=== PATIENT | female | born 2000 | race Hispanic/Latino ===

== ENCOUNTER 2020-07-11 20:10 | Emergency (ER) | payer OTHER, SELFPAY ==
[2020-07-11] VITALS (22 sets, daily range): BP systolic 84–118; BP diastolic 50–75; PULSE 71–78; RESP 16–18; TEMP 36.4; O2SAT 97–100
[2020-07-11 20:38] LABS: Basophils Percent Auto 0.2 % (0.2-1.2); Eosinophils Percent Auto 0.5 % (0-4.4); Hematocrit 39.9 % (37.0-47.0); Hemoglobin 13.7 g/dL (12.0-15.0); Immature Granulocyte Absolute 0.04 K/mm3 (0.00-0.031); Immature Granulocyte Percent A 0.5 % (0-0.5); Lymphocytes Absolute Auto 2.35 K/mm3 (0.9-3.2); Mean Corpuscular HGB Conc 34.3 g/dl (32-36); Mean Corpuscular Volume 84.4 fl (80-100); Mean Platelet Volume 9.5 fl (7.4-10.4); Monocytes Absolute Auto 0.5 K/mm3 (0.1-0.6); Monocytes Percent Auto 5.2 % (2.6-8.5); Neutrophils Absolute Auto 5.8 K/mm3 (1.3-6.7); Neutrophils Percent Auto 66.6 % (45.5-73.1); Platelet Count Result 256 k/mm3 (150-375); Red Blood Count 4.73 M/mm3 (4.2-5.4); Red Cell Distribution Width 12.8 % (11.5-14.5); White Blood Count 8.7 K/mm3 (4.5-10.0)
--- NOTE | 2020-07-11 20:44 | ED.FEMALEGU ---
HPI - Female Genitourinary General Chief complaint: Abdominal Pain Stated complaint: 16 weeks preg, spotting, lower abd pain Time Seen by Provider: 07/11/20 20:27 Source: patient Mode of arrival: ambulatory Limitations: no limitations History of Present Illness HPI Narrative: 19 years old female, 17 weeks , 2, para 1, 1. Patient presents with vaginal spotting few hours prior to arrival to the emergency room with lower abdominal cramps. Patient denies any fever, chills, nausea, vomiting, chest pain or urinary symptoms Related Data Home Medications Medication Instructions Recorded Confirmed 19 1 tablet PO DAILY 06/02/19 06/02/19 Allergies Allergy/AdvReac Type Severity Reaction Status Date / Time No Known Allergies Allergy Unverified 01/08/19 08:13 Review of Systems Review of Systems: Narrative: CONSTITUTIONAL: Denies fever, chills, or sweats. EYES: Denies visual changes, redness, or discharge. ENT: Denies rhinorrhea, congestion, sore throat, or otalgia. CARDIOVASCULAR: Denies chest pain, palpitations, or edema. RESPIRATORY: Denies cough or dyspnea. GASTROINTESTINAL: Denies abdominal pain, nausea, vomiting, or diarrhea. GENITOURINARY: Denies dysuria or hematuria. SKIN: Denies rash or itching. MUSCULOSKELETAL: Denies back pain, joint pain, or myalgia. NEUROLOGIC: Denies headache, numbness, or weakness. PSYCHIATRIC: Denies anxiety or depression. [facility] Family History Family History Other Unknown family medical history Social History Social History Smoking status: Never smoker Substance use: never Spiritual care concerns: No Exam Narrative: Exam Narrative: General appearance: Well-developed, well-nourished Skin: Normal color Head: Normocephalic, nontraumatic Eyes: Clear conjunctiva ENT: Oropharynx normal, ears normal, nose normal Neck: Supple, nontender Chest and respiratory: Airway patent, no respiratory distress, no accessory muscle use Heart: Regular rate/rhythm Abdomen: Soft, nontender, no organomegaly, quiet bowel sounds Vascular: Normal peripheral pulses, normal capillary refill. Musculoskeletal: Normal range of motion, nontender back Neurologic: Alert and oriented ?3, [employer] is normal as tested, no gross motor deficit : External Female Exam: normal external appearance Speculum Exam - Vagina: normal appearance of the vagina and vaginal bleeding (No vaginal bleeding) Speculum Exam - Cervix: normal appearance of the cervix and Cervical os closed Course Course Emergency Course: Stable Reevaluation(s) Reevaluation #1: heart tone is 150. Patient is comfortable denying any symptoms at this time. Date: 07/11/20 Time: 22:59 Vital Signs Vital signs: Vital Signs Temperature 36.4 C L 07/11/20 20:15 Pulse Rate 77 07/11/20 20:15 Respiratory Rate 18 07/11/20 20:15 Blood Pressure 118/60 07/11/20 20:15 Pulse Oximetry 100 07/11/20 20:15 Temperature 36.4 C L 07/11/20 20:15 Pulse Rate 71 07/11/20 22:28 Respiratory Rate 16 07/11/20 22:28 Blood Pressure 95/50 L 07/11/20 22:28 Pulse Oximetry 98 07/11/20 22:28 MDM - Female Genitourinary MDM Narrative Medical decision making narrative: 17 weeks , vaginal spotting prior to arrival to the emergency room. Pelvic exam showed no active bleeding, no blood in the vaginal pouch. Labs, heart tone, pelvic ultrasound ordered. Further plan to follow Differential Diagnosis Differential diagnosis: Likely cervicitis and other () Lab Data Result diagrams: 07/11/20 20:31 Laura
[2020-07-11 22:01] LABS: Add Urine Microscopic? NO; Appearance Urine Clear (Clear); Bilirubin Urine Negative (Negative); Blood Urine Negative (Negative); Color Urine Straw (Yellow); Glucose Urine UA Negative (Negative); Ketones Urine Negative (Negative); Leukocyte Esterase Ur Negative LEU/UL (Negative); Nitrate Urine Negative (Negative); Protein Urine Negative (Negative); Specific Grav Ur 1.014 (1.001-1.035); Urobilinogen Urine Negative mg/dL (<2.0)
== END 2020-07-11 23:21 | disposition home or self-care (01) ==
PROVIDERS: Emergency Medicine; Emergency Provider Emergency Medicine; PCP Obstetrics & Gynecology
DX: O20.0 Threatened abortion (principal); Z3A.17 17 weeks gestation of pregnancy
CPT/HCPCS: 36415; 81003; 84702; 85025; 85461; 99283

== ENCOUNTER 2020-11-23 01:52 | Inpatient (IN) | payer OTHER, SELFPAY ==
[2020-11-23] VITALS (19 sets, daily range): BP systolic 102–140; BP diastolic 61–117; PULSE 67–113; RESP 14–20; TEMP 36.1–37.1; O2SAT 98; BMI 36.1
[2020-11-23 04:33] LABS: Basophils Percent Auto 0.2 % (0.2-1.2); Eosinophils Percent Auto 0.2 % (0-4.4); Hematocrit 35.2 % (37.0-47.0); Hemoglobin 10.8 g/dL (12.0-15.0); Immature Granulocyte Absolute 0.11 K/mm3 (0.00-0.031); Immature Granulocyte Percent A 0.9 % (0-0.5); Lymphocytes Absolute Auto 1.84 K/mm3 (0.9-3.2); Lymphocytes Percent Auto 14.9 % (18.3-44.2); Mean Corpuscular HGB Conc 30.7 g/dl (32-36); Mean Corpuscular Hemoglobin 23.2 pg (26-34); Mean Corpuscular Volume 75.5 fl (80-100); Monocytes Absolute Auto 0.6 K/mm3 (0.1-0.6); Monocytes Percent Auto 4.9 % (2.6-8.5); Neutrophils Absolute Auto 9.8 K/mm3 (1.3-6.7); Neutrophils Percent Auto 78.9 % (45.5-73.1); Platelet Count Result 221 k/mm3 (150-375); Red Blood Count 4.66 M/mm3 (4.2-5.4); Red Cell Distribution Width 15.9 % (11.5-14.5); White Blood Count 12.4 K/mm3 (4.5-10.0)
--- NOTE | 2020-11-23 04:40 | LDADM ---
This patient, Yumi Jesus, was admitted to Labor/Delivery/Recovery 103 on 11/23/20 at 01:52. Plans for labor, pain management and were discussed with patient. Patient/family oriented to hospital policies and general routines including ID bracelet, bed and alarms, visiting hours, pain management, procedures, bathroom and other care routines, personal items, smoking policy, room service/diet and guest tray routines, security routines, and visiting hours. Patient/Family are encouraged to report perceived risks to care and to ask questions if they do not understand what they are told or what they should do. See [facility]BI[facility] for further documentation.
[2020-11-23] MEDS: fentaNYL CITRATE INJ (*CRX) 100 MCG/2 ML VIAL 50 MCG IV PUSH ×2 (04:51→06:06)
[2020-11-23] MEDS: OXYTOCIN 30 UNITS/NS 500 ML 30 UNITS/500 ML BAG 999 UNITS IV CONT (07:44)
[2020-11-23] MEDS: OXYTOCIN 30 UNITS/NS 500 ML 30 UNITS/500 ML BAG 125 UNITS IV CONT (08:15)
--- NOTE | 2020-11-23 08:30 | WPDANESEPP ---
Anes - Eval Pre Procedure Procedure: Labor Epidural Date/Time: 11/23/20 08:30 Pre Op Diagnosis: Leaking, CTX Patient Data Age: 20 Gender: F Height: 1.55 m Weight: 86.8 kg Last Vital Signs Temp 36.5 C 11/23/20 06:35 Pulse 95 11/23/20 08:16 Resp 20 11/23/20 04:30 BP 112/88 11/23/20 08:16 Allergies Allergy/AdvReac Type Severity Reaction Status Date / Time No Known Allergies Allergy Verified 11/01/20 15:47 Home Medications Medication Instructions Recorded Confirmed Type 19 1 tablet PO DAILY 06/02/19 11/23/20 History Laboratory Tests 11/23/20 11/23/20 11/23/20 04:26 04:26 04:26 WBC 12.4 K/mm3 H K/mm3 (4.5-10.0) RBC 4.66 M/mm3 M/mm3 (4.2-5.4) Hgb 10.8 g/dL L g/dL (12.0-15.0) Hct 35.2 % L % (37.0-47.0) MCV 75.5 fl L fl (80-100) MCH 23.2 pg L pg (26-34) MCHC 30.7 g/dl L g/dl (32-36) RDW 15.9 % H % (11.5-14.5) Plt Count 221 k/mm3 k/mm3 (150-375) MPV 9.0 fl fl (7.4-10.4) Immature Gran % (Auto) 0.9 % H % (0-0.5) Neut % (Auto) 78.9 % H % (45.5-73.1) Lymph % (Auto) 14.9 % L % (18.3-44.2) Mccracken % (Auto) 4.9 % % (2.6-8.5) Eos % (Auto) 0.2 % % (0-4.4) Baso % (Auto) 0.2 % % (0.2-1.2) Lymph # (Auto) 1.84 K/mm3 K/mm3 (0.9-3.2) Mccracken # (Auto) 0.6 K/mm3 K/mm3 (0.1-0.6) Eos # (Auto) 0.0 K/mm3 K/mm3 (0-0.3) Baso # (Auto) 0.0 K/mm3 K/mm3 (0.0-0.1) Abs Immat Gran (auto) 0.11 K/mm3 H K/mm3 (0.00-0.031) Absolute Neuts (auto) 9.8 K/mm3 H K/mm3 (1.3-6.7) Absolute Nucleated RBC 0.0 K/mm3 K/mm3 (0.0-0.012) Nucleated RBC % 0.0 % % (0.0-0.2) RPR Pending Blood Type B Positive Antibody Screen Negative Patient hx anesthesia problems: none Family hx anesthesia problems: none PMFSH Family History Family History Other Unknown family medical history Social History Social History Smoking status: Never smoker Substance use: never Spiritual care concerns: No Exam Day of Procedure 11/23/20 08:30 Patient weight: obese Heart: regular rate and rhythm Lungs: normal air movement Airway: Mallampati scale class II Neurological: alert and oriented
--- NOTE | 2020-11-23 08:30 | WPDOBADMIT ---
Obstetrics - Admit Note Admission Note: 20 y/o here in spontaneous labor. record reviewed. No pertinent additions to the history and/or any subsequent changes in the physical findings that are not consistent with the expected course of the were found. Additions to the history and/or subsequent changes in the physical findings follow. None.
--- NOTE | 2020-11-23 08:31 | PM.OBPRVD ---
OB - Delivery Note Procedure Delivery date: 11/23/20 Intrapartal events: None Induction method: none Delivery augmentation: rupture of membranes Delivery monitor: external FHT and external uterine Route of delivery: Episiotomy description: None Laceration Description: None Quantitative Blood Loss (ml): 125 Narrative: Mother and baby in stable condition. Cord gasses collected and handed off to staff. Baby Date of : 11/23/20 Time of : 07:35 Weeks of gestation at delivery: 38 presentation: vertex position: Right Occiput Anterior Placenta delivery description: Spontaneous
[2020-11-23] MEDS: IBUPROFEN 600 MG TABLET PO ×2 (08:37→19:30)
[2020-11-23] MEDS: ACETAMINOPHEN 325 MG TABLET 650 MG PO ×2 (09:47→22:20)
[2020-11-23] MEDS: BENZOCAINE 20% AER SPR (*SP) 56 GM CAN 1 SPRAY TOPICAL (09:49)
[2020-11-23] MEDS: MULTIVIT/MIN/PREN/FOL AC/IRON TABLET 1 TAB PO (09:49)
[2020-11-23] MEDS: WITCH HAZEL 40 PADS 1 PAD TOPICAL (09:49)
[2020-11-24] MEDS: IBUPROFEN 600 MG TABLET PO (03:57)
[2020-11-24] MEDS: ACETAMINOPHEN 325 MG TABLET 650 MG PO (03:57)
[2020-11-24 04:00] VITALS: BP 107/64; PULSE 87; RESP 15; TEMP 36; O2SAT 99
[2020-11-24 04:55] LABS: Hematocrit 27.9 % (37.0-47.0); Hemoglobin 8.7 g/dL (12.0-15.0)
[2020-11-24 08:30] VITALS: BP 124/72; PULSE 64; PULSE 87; RESP 14; RESP 15; TEMP 36.6; O2SAT 100; O2SAT 99
--- NOTE | 2020-11-24 09:21 | PM.OBPNVD ---
OB - PN: Subj Subjective Date/time seen: 11/24/20 09:21 Patient comments: no complaints baby status: doing well OB - PN: Obj Data Labs CBC & Chem 7: 11/24/20 04:21 Labs: Laboratory Results - last 24 hr 11/24/20 04:21 Hgb 8.7 L Hct 27.9 L OB - PN A/P Plan day: 1 Plan: routine care Time Spent With Patient Time: Total time spent is greater than 50% in coordination of care (as documented) at patient's floor/unit and/or counseling patient: Time with patient: less than 15 minutes Review of Systems Review of Systems: All systems reviewed & are unremarkable except as noted in HPI and below Exam Narrative: Exam Narrative: Fundus firm and vaginal flow controlled. No lower ext redness, warmth, or edema. Negative homans. Const: General: comfortable Chest: Breast/axilla inspection: normal inspection of the breasts Resp: Effort & Inspection: normal respiratory effort Cardio: Rate: regular rate GI: GI Palp: Yes Soft to palpation Psych: Appearance: grossly normal Affect: normal affect Attitude: cooperative Thought content: Yes Normal thought content present Judgement: Good judgement present (Psych)
--- NOTE | 2020-11-24 09:24 | P.DS_ITS ---
DS: Admitting Diagnosis Admitting Diagnosis Admitting Diagnosis: Labor DS: Discharge Diagnosis Discharge Diagnosis (1) Vaginal delivery: Code(s): O80 - Encounter for full-term uncomplicated delivery Status: Acute OB - DS: Summary OB Procedures : None OB Procedures Intrapartum: Spontaneous Vag Delivery OB Procedures: : None Time Spent with Patient Time attestation: Total time spent providing and/or coordinating discharge services: DS: Data Data Completed and Pending Labs on day of discharge: Labs from last 24 hours 11/24/20 04:21 Hgb 8.7 L Hct 27.9 L Discharge Plan Discharge Attending physician on discharge: Tricia Devries Discharging Clinician: Tricia Devries Patient Disposition: Home, Self-Care Activity: pelvic rest Diet: as tolerated Patient Instructions: Antibiotic Form Stand Alone Forms: General Discharge Information Follow-up/Referrals: Tricia Devries, CNM [Certified Nurse Correction Officer Head] - Discharge Medications: New polysaccharide iron complex 150 mg iron Capsule 150 mg PO BIDWM Qty: 60 RF: 0 Continued 19 29 mg iron- 1 mg Tablet,Chewable 1 tablet PO DAILY RF: 0 Date of admission: 11/23/20 01:52 Primary Care Provider: PHYSICIAN,ADVERTISING SALES MANAGER Admitting Provider: Tang Stevens Attending physician on admission: Tang Stevens Condition: Stable
[2020-11-25 11:30] LABS: Rapid Plasma Reagin Non-Reactive (NonReactive)
[2020-11-26 11:24] VITALS: BP 113/62; PULSE 87; RESP 20; TEMP 37; O2SAT 100
== END 2020-11-24 14:05 | disposition home or self-care (01) | DRG 560 ==
LOC: ANHLDR 04:21 → ANHOB2 10:53
PROVIDERS: Advanced Practice Midwife; Admitting Provider Obstetrics & Gynecology; Visit Provider Obstetrics & Gynecology
DX: O69.89X0 Labor and delivery complicated by other cord complications, not applicable or unspecified (principal); Z37.0 Single live birth; Z3A.38 38 weeks gestation of pregnancy; O99.214 Obesity complicating childbirth; E66.9 Obesity, unspecified
CPT/HCPCS: 36415; 85014; 85018; 85025; 86592; 86850; 86900; 86901; A9270; J2590; J3010